=== PATIENT | male | born 1960 | race Caucasian/White ===

== ENCOUNTER 2021-10-10 13:42 | Emergency (ER) | payer OTHER, SELFPAY ==
[2021-10-10 13:55] VITALS: BP 180/88; PULSE 69; RESP 16; TEMP 36.7; O2SAT 98
[2021-10-10 13:57] VITALS: BP 180/88; PULSE 69; RESP 16; TEMP 36.7; O2SAT 98
--- NOTE | 2021-10-10 14:03 | ED.WOUNDLAC ---
HPI - Wound/Laceration General Chief Complaint: Wound/Laceration Stated Complaint: right ankle wound Time Seen by Provider: 10/10/21 14:00 Source: patient Mode of arrival: ambulatory Limitations: no limitations History of Present Illness HPI narrative: Mr. Toro is a 60-year-old male patient presenting to the clinic today with complaints of a sore/wound to the right lower leg superior of his ankle x1 week. He denies any known injury however he stated that his granddaughter pointed out last week that he was bleeding from this area. He has been keeping a clean and dry but reports over the last few days as it has become more red, swollen, and painful to palpation. His tetanus shot is up-to-date within the last 5 years. He is currently taking Coumadin for factor V Leiden disease. States that he is buddhism with taking his medication as prescribed Related Data Home Medications Medication Instructions Recorded Confirmed simvastatin 40 mg tablet 40 mg PO DAILY 10/10/21 10/10/21 warfarin 6 mg tablet 6.5 mg PO DAILY 10/10/21 10/10/21 Allergies Allergy/AdvReac Type Severity Reaction Status Date / Time acetaminophen Allergy Unknown Just Verified 10/10/21 13:56 don't do well with it oxycodone Allergy Unknown Just Verified 10/10/21 13:56 don't do well with it Review of Systems Review of Systems: Pertinent positives per HPI. Patient denies any fever, chills, rash, headache, visual changes, dizziness, cough, runny nose, sore throat, shortness of breath, chest pain, palpitations, nausea, vomiting, diarrhea, constipation, abdominal pain, or any urinary issues. PMFSH Comments At the time of my signature, I reviewed and agree with the nursing past medical, surgical, social, and family history. There is no relevant family history pertinent to the patient complaint. Exam Narrative: General: Well-developed, well nourished, in no apparent distress Head: Normocephalic, atraumatic. Cardio: Regular rate and rhythm, s1 and s2 normal, no murmur appreciated. Resp: Clear to auscultation bilaterally, no rhonchi, rales, wheezing or rubs. Integumentary: [place], warm, and dry, 2+ pitting edema to bilateral lower extremities, redness, swelling, and tenderness to palpation over the right lateral lower leg around the area of a small wound. Negative Homans' sign, venous insufficiency skin changes to the bilateral medial ankles, multiple varicose veins noted bilaterally without signs of phlebitis or superficial blood clots. Course Course Emergency Course: Portions of this record may have been created with voice recognition software. Level of Care: Express Care Visit Vital Signs Vital signs: Vital Signs Temperature 36.7 C 10/10/21 13:55 Pulse Rate 69 10/10/21 13:55 Respiratory Rate 16 10/10/21 13:55 Blood Pressure 180/88 H 10/10/21 13:55 Pulse Oximetry 98 10/10/21 13:55 Oxygen Delivery Room Air 10/10/21 13:55 Temperature 36.7 C 10/10/21 13:57 Pulse Rate 69 10/10/21 13:57 Respiratory Rate 16 10/10/21 13:57 Blood Pressure 180/88 H 10/10/21 13:57 Pulse Oximetry 98 10/10/21 13:57 Oxygen Delivery Room Air 10/10/21 13:57 Vital signs reviewed MDM - Wound/Laceration MDM Narrative Medical decision making narrative: At the time of visit patient is resting comfortably on the exam table. I suspect that he has a skin infection to the right lower lateral leg from a probable puncture wound. I will send in a prescription for some doxycycline and supportive measures were discussed with the patient he voiced understanding of discharge instructions and agrees to the treatment plan. Differential Diagnosis Differential diagnosis: Likely laceration and other (Puncture wound, cellulitis, wound infection) Discharge Plan Discharge Clinical Impression: Varicose veins of both legs with edema, Venous insufficiency Bacterial skin infection of leg Qualifiers: Laterality: right Qual
== END 2021-10-10 14:10 | disposition home or self-care (01) ==
PROVIDERS: Emergency Provider Nurse Practitioner Family
DX: I83.12 Varicose veins of left lower extremity with inflammation (principal); I83.11 Varicose veins of right lower extremity with inflammation; Z79.01 Long term (current) use of anticoagulants; D68.51 Activated protein C resistance
CPT/HCPCS: 99213; G0463

== ENCOUNTER 2022-11-23 16:19 | Emergency (ER) | payer OTHER, SELFPAY ==
--- NOTE | ~2022-11-23 | XR_ITS ---
EXAMINATION: XR lumbar spine 2-3V DATE: 11/23/2022 17:13 INDICATION: Low back pain. TECHNIQUE: 3 views of lumbar spine were obtained. COMPARISON: None. FINDINGS: There is 3 degrees dextrocurvature of lumbar spine. There is 4 mm anterolisthesis of L4 on L5. There are Schmorl's nodes at multiple levels. There is mild chronic anterior wedging of T11 and T 12 vertebral bodies. There is mildly decreased disc height at L3-L4, L4-L5, and L5-S1. There is multi level facet joint osteoarthritis, severe in lower lumbar spine. There is a filter in the inferior madhu a cava. Surgical clips overlie right pelvis. IMPRESSION: 1. Mild lumbar spondylosis. Reviewed, dictated and finalized at location E. IMPRESSION: 1. Mild lumbar spondylosis.
[2022-11-23 16:36] VITALS: BP 183/105; PULSE 79; RESP 14; TEMP 36.9; O2SAT 97
[2022-11-23 16:41] VITALS: BP 183/105; PULSE 79; RESP 14; TEMP 36.9; O2SAT 97
--- NOTE | 2022-11-23 16:59 | ED.BACK ---
HPI - Back Pain/Injury General Chief Complaint: Back Pain/Injury Stated Complaint: Low Back Pain Source: patient and RN notes reviewed History of Present Illness HPI Narrative: 62 yo M presents to urgent care with complaints of mid lumbar back pain. Pt states he has had chronic back pain for years and was told in the past he had a ruptured disk and bone spurs. Pt states his back pain got worse late spring/early summer this year. Pt denies any specific injury. Reports the pain goes down the back of both legs and both feet are tingling. 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 Pt states he has seen his chiropractor about 3-4x in the past couple months with no relief which is not normal for him. Pt states he has been taking Tylenol and placing lidocaine patches and Bio Freeze without relief. Denies any fevers, chills, dysuria, incontinence of urine or stool, saddle anesthesia, weakness, chest pain, or SOB. Related Data Home Medications Medication Instructions Recorded Confirmed warfarin 6 mg tablet 6.5 mg PO QHS 10/10/21 11/23/22 lorazepam 0.5 mg tablet 1 mg PO QHS PRN Sleep 11/23/22 11/23/22 simvastatin 40 mg tablet 40 mg PO QHS 11/23/22 11/23/22 Allergies Allergy/AdvReac Type Severity Reaction Status Date / Time acetaminophen Allergy Unknown Just Verified 11/23/22 16:39 don't do well with it oxycodone Allergy Unknown Just Verified 11/23/22 16:39 don't do well with it Review of Systems Review of Systems: Pertinent positives and pertinent negatives per HPI. PMFSH Comments At the time of my signature, I reviewed and agree with the nursing past medical, surgical, social, and family history. There is no relevant family history pertinent to the patient complaint. Exam Narrative: GENERAL: This is a well-nourished, well-developed patient, in no apparent distress. HEAD: normocephalic, atraumatic. EYES: Sclera clear/white. Vision is grossly intact. EARS: External ears normal, auditory canals clear and without drainage, TMs normal without perforation. Hearing grossly intact. NOSE: External nose normal with no obvious nasal discharge, nares without redness, no rhinorrhea. THROAT: Mucous membranes moist, posterior pharynx clear. NECK: Neck supple, non-tender without lymphadenopathy, masses or thyromegaly. CARDIOVASCULAR: Regular rate and rhythm without murmurs, gallops, or rubs. RESPIRATORY: Clear to auscultation. Breath sounds equal bilaterally. No wheezes, rales, or rhonchi. GASTROINTESTINAL: Abdomen soft, non-tender, nondistended. Bowel sounds are active. No hepato-splenomegaly, or palpable masses. No guarding. SKIN: warm, intact with no suspicious lesions or rash, good texture and turgor. NEURO: awake, alert, and oriented to person, place and time. There were no obvious focal neurologic abnormalities. EXTREMITIES: No clubbing, cyanosis, or edema. No joint tenderness, effusion, or edema noted. BACK: Nontender without deformity or crepitus. No flank tenderness. Course Course Level of Care: Express Care Visit Vital Signs Vital signs: Vital Signs Temperature 98.5 F 11/23/22 16:36 Pulse Rate 79 11/23/22 16:36 Respiratory Rate 14 11/23/22 16:36 Blood Pressure 183/105 H 11/23/22 16:36 Pulse Oximetry 97 11/23/22 16:36 Oxygen Delivery Room Air 11/23/22 16:36 Temperature 98.5 F 11/23/22 16:41 Pulse Rate 79 11/23/22 16:41 Respiratory Rate 14 11/23/22 16:41 Blood Pressure 183/105 H 11/23/22 16:41 Pulse Oximetry 97 11/23/22 16:41 Oxygen Delivery Room Air 11/23/22 16:41 Reviewed MDM - Back Pain/Injury MDM Narrative Medical decision making narrative: Take the steroids as directed. 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 Go to the ER with any new or worsening symptoms. Differential Diagnosis Differential diagnosis: Likely lumbar radiculopathy, sciatica, strain of lumbar region and other (Subluxatio
== END 2022-11-23 17:38 | disposition home or self-care (01) ==
PROVIDERS: Emergency Provider Nurse Practitioner Family
DX: M47.816 Spondylosis without myelopathy or radiculopathy, lumbar region (principal); Z79.01 Long term (current) use of anticoagulants; E78.00 Pure hypercholesterolemia, unspecified; I10 Essential (primary) hypertension
CPT/HCPCS: 72100; 99213; G0463